=== PATIENT | female | born 1965 | race Caucasian/White ===

== ENCOUNTER 2018-11-29 12:46 | Emergency (ER) | payer MEDICAID ==
[~2018-11-29] VITALS: Ht 177.8 cm; Wt 72.7 kg
[2018-11-29 12:59] VITALS: BP 123/68
== END 2018-11-29 14:01 | disposition home or self-care (01) ==
LOC: ED 13:55
DX: J01.00 Acute maxillary sinusitis, unspecified (principal); E03.9 Hypothyroidism, unspecified
CPT/HCPCS: 71046; 99283